=== PATIENT | female | born 1980 | race American Indian/Alaskan Native ===

== ENCOUNTER 2018-01-03 08:50 | Outpatient (CLI) | payer OTHER | END 2018-01-03 09:51 | disposition home or self-care (01) | LOC: NST 08:50 | DX: Z34.83 Encounter for supervision of other normal pregnancy, third trimester (principal) ==

== ENCOUNTER 2018-01-22 14:16 | Outpatient (CLI) | payer OTHER | END 2018-01-22 17:32 | disposition home or self-care (01) | LOC: NST 14:16 | DX: Z34.83 Encounter for supervision of other normal pregnancy, third trimester (principal) ==

== ENCOUNTER 2018-01-29 08:57 | Inpatient (IN) | payer OTHER ==
[~2018-01-29] VITALS: Ht 160 cm; Wt 2.3 kg
[2018-01-29] MEDS ORDERED: PRENATABS FA T1 EACH PO (09:28)
[2018-01-29] MEDS ORDERED: INTEGRA CAPSUL1 EACH PO (09:28)
[2018-01-29] MEDS ORDERED: NIFE60TA3 PO (09:29)
== END 2018-02-10 13:01 | DRG 788 ==
LOC: SURH 02-06 08:17 → OB/GYN 02-06 08:40 → O/R 02-06 09:27 → OB/GYN 02-06 18:09
PROVIDERS: ADMIT Obstetrics & Gynecology Maternal & Fetal Medicine
PROC: 4A1HXCZ Monitoring of Products of Conception, Cardiac Rate, External Approach (ICD-10-PCS; 2018-02-06)
PROC: 10D00Z1 Extraction of Products of Conception, Low, Open Approach (ICD-10-PCS; principal; 2018-02-06 13:00)
DX: O34.211 Maternal care for low transverse scar from previous cesarean delivery (principal); O75.82 Onset (spontaneous) of labor after 37 completed weeks of gestation but before 39 completed weeks gestation, with delivery by (planned) cesarean section; O99.63 Diseases of the digestive system complicating the puerperium; Z3A.37 37 weeks gestation of pregnancy; Z37.0 Single live birth; Z22.330 Carrier of Group B streptococcus